=== PATIENT | male | born 1995 | race Caucasian/White ===

== ENCOUNTER 2021-06-27 03:56 | Emergency (ER) | payer SELFPAY | END 2021-06-27 06:05 | disposition left against medical advice (07) | LOC: CSHERS 03:56 | DX: Z53.21 Procedure and treatment not carried out due to patient leaving prior to being seen by health care provider (principal) ==

== ENCOUNTER 2021-06-27 13:57 | Emergency (ER) | payer SELFPAY | END 2021-06-27 14:12 | disposition left against medical advice (07) | LOC: CSHERS 13:57 | DX: Z53.21 Procedure and treatment not carried out due to patient leaving prior to being seen by health care provider (principal) ==